=== PATIENT | female | born 1985 ===

== ENCOUNTER 2022-01-02 14:40 | Outpatient (CLI) | payer OTHER | END 2022-01-02 15:44 | disposition home or self-care (01) | LOC: PRENATAL 14:40 | PROVIDERS: ATTEND Obstetrics & Gynecology Maternal & Fetal Medicine | DX: O36.80X0 Pregnancy with inconclusive fetal viability, not applicable or unspecified (principal); O34.10 Maternal care for benign tumor of corpus uteri, unspecified trimester; O09.529 Supervision of elderly multigravida, unspecified trimester ==

== ENCOUNTER 2022-03-16 14:30 | Outpatient (CLI) | payer OTHER | END 2022-03-16 15:30 | disposition home or self-care (01) | LOC: PRENATAL 14:30 | PROVIDERS: ATTEND Obstetrics & Gynecology Maternal & Fetal Medicine | DX: O35.0XX0 Maternal care for (suspected) central nervous system malformation in fetus, not applicable or unspecified (principal); O35.3XX0 Maternal care for (suspected) damage to fetus from viral disease in mother, not applicable or unspecified; O09.529 Supervision of elderly multigravida, unspecified trimester; O34.10 Maternal care for benign tumor of corpus uteri, unspecified trimester; Z3A.23 23 weeks gestation of pregnancy ==